=== PATIENT | female | born 1950 | race Hispanic/Latino ===

== ENCOUNTER 2018-10-18 11:16 | Observation (INO) | payer MEDICARE, OTHER ==
[2018-10-18] MEDS ORDERED: Lidocaine 129 MG in Sodium Chloride 0.9% 100 ML IV STA (13:03)
[2018-10-18] MEDS ORDERED: Sodium Chloride 0.9% 1,000 ML IV STA (13:03)
--- NOTE | 2018-10-18 13:10 | C.PDOC ---
History Of Present Illness 68 y/o female presents to the ED complaining of LUQ and left flank pain since yesterday. Patient has PMHx of chronic low back pain, for which she is prescribed opiates and receives periodic steroid injections. Initially patient states she attributed symptoms to her chronic pain as it was located in left flank and low back. Now pain has migrated to the front, prompting patient to come in. Pain worsens with position change or movement, and resolves with rest. No other associated complaints. Patient denies any dysuria, hematuria, fevers, chills, nausea, vomiting, or change in bowel movements. Time Seen by Provider: 10/18/18 12:05 Chief Complaint (Nursing): Abdominal Pain History Per: Patient History/Exam Limitations: no limitations Onset/Duration Of Symptoms: Days (x2) Current Symptoms Are (Timing): Still Present Location Of Pain/Discomfort: LUQ Radiation Of Pain To:: Back, Flank Quality Of Discomfort: "Pain" Exacerbating Factors: Movement, Upright Position Alleviating Factors: Rest Past Medical History Reviewed: Historical Data, Nursing Documentation, Vital Signs Vital Signs: Last Vital Signs Temp 99.4 F 10/18/18 11:23 Pulse 98 H 10/18/18 11:23 Resp 18 10/18/18 11:23 BP 183/97 H 10/18/18 11:23 Pulse Ox 95 10/18/18 11:23 - Medical History PMH: Anxiety, Arthritis (knees), Asthma, COPD, HTN, Chronic Pain (low back) Denies: Diabetes, Hepatitis, HIV, Seizures Family History: States: No Known Family Hx - Social History Hx Tobacco Use: No Hx Alcohol Use: No Hx Substance Use: No - Immunization History Hx Tetanus Toxoid Vaccination: No Hx Influenza Vaccination: Yes Hx Pneumococcal Vaccination: No Review Of Systems Except As Marked, All Systems Reviewed And Found Negative. Constitutional: Negative for: Fever, Chills Cardiovascular: Negative for: Chest Pain Respiratory: Negative for: Shortness of Breath Gastrointestinal: Positive for: Abdominal Pain (LUQ), Other (Left flank pain). Negative for: Nausea, Vomiting, Diarrhea, Constipation Genitourinary: Negative for: Dysuria, Frequency, Hematuria Musculoskeletal: Positive for: Back Pain (chronic low back pain) Skin: Negative for: Rash Neurological: Negative for: Weakness, Numbness, Incoordination Physical Exam - Physical Exam Appears: Non-toxic, In Acute Distress (mild distress) Skin: Warm, Dry, No Rash Head: Atraumatic, Normacephalic Eye(s): bilateral: Normal Inspection, PERRL, EOMI Oral Mucosa: Moist Neck: Normal ROM Chest: Symmetrical Cardiovascular: Rhythm Regular, No Murmur Respiratory: Normal Breath Sounds, No Rales, No Rhonchi, No Wheezing, Other (NARD) Gastrointestinal/Abdominal: Soft, No Tenderness (to any quadrant), No Distention, No Guarding, No Rebound Back: CVA Tenderness (minimal Left CVAT), No Vertebral Tenderness, Other (Reproducible pain with movement and sitting upright) Extremity: Bilateral: Atraumatic, Normal Color And Temperature, Normal ROM (moves all extremities) Pulses: Left Dorsalis Pedis: Normal, Right Dorsalis Pedis: Normal Neurological/Psych: Oriented x3, Normal Cranial Nerves, Normal Motor, Normal Sensation, Other (No focal deficits) ED Course And Treatment - Laboratory Results Result Diagrams: 10/18/18 13:19 10/18/18 13:19 O2 Sat by Pulse Oximetry: 95 (RA) Pulse Ox Interpretation: Normal - Other Rad CXR X-Ray: Read By Radiologist Interpretation: Accession No. : [id number]. Patient Name / ID : KARLA GARZA / [id number]. Exam Date : 10/18/2018 13:20:25 ( Approved ). Study Comment : Sex / Age : F / 68Y. Creator : Dolores Calloway RT,CT. Dictator : Rayray Lamb MD. Ladle Mechanic : Sales Support Consultant : Rayray Lamb MD. Approver2 : Report Date : 10/18/2018 13:29:38. My Comment : . Date of service: 10/18/2018. HISTORY: abd pain. COMPARISON: No prior. TECHNIQUE: Chest PA and lateral. FINDINGS: LUNGS: Linear scar atelectasis at left base. No infiltrate. PLEURA: No significant pleural effusion identified. No pneumothorax apparent. CARDIOVASCULAR: No aortic atherosclerotic calcification present. Normal cardiac size. No pulmonary vascular congestion. OSSEOUS STRUCTURES: No significant abnormalities. VISUALIZED UPPER ABDOMEN: Incidentally noted colonic interposition between superior right liver and right hemidiaphragm. OTHER FINDINGS: None. IMPRESSION: No active disease. - CT Scan/US CT Abdomen/Pelvis Other Rad Studies (CT/US): Read By Radiologist, Radiology Report Reviewed CT/US Interpretation: Accession No. : [id number]. Patient Name / ID : KARLA GARZA / [id number]. Exam Date : 10/18/2018 14:33:26 ( Approved ). Study Comment : Sex / Age : F / 68Y. Creator : Rayray Lamb MD. Dictator : Rayray Lamb MD. Ladle Mechanic : Sales Support Consultant : Rayray Lamb MD. Approver2 : Report Date : 10/18/2018 15:11:27. My Comment : . Date of service: 10/18/2018. PROCEDURE: CT Abdomen and Pelvis with contrast. HISTORY: L FLANK/LUQ PAIN. COMPARISON: Not available. TECHNIQUE: Contrast dose: 100 mL Omnipaque 350. Radiation dose: Total exam DLP = 1014.98 mGy-cm. This CT exam was performed using one or more of the following dose reduction techniques: Automated exposure control, adjustment of the mA and/or kV according to patient size, and/or use of iterative reconstruction technique. FINDINGS: LOWER THORAX: Unremarkable. LIVER: Unremarkable. No gross lesion or ductal dilatation. GALLBLADDER AND BILE DUCTS: Cholelithiasis. No mural thickening or pericholecystic fluid. PANCREAS: Unremarkable. No gross lesion or ductal dilatation. SPLEEN: Mild splenomegaly. The spleen measures 13.9 cm in greatest dimension. There is an 11 mm nonspecific rounded low-density mass in the spleen. ADRENALS: Unremarkable. No mass. KIDNEYS AND URETERS: Numerous bilateral rounded low-attenuation masses. Largest in the left kidney the rises from the lower pole and measures approximately 9.2 cm in diameter. This measures 16 Hounsfield units attenuation. In the right kidney, the largest is in the upper pole, measuring 4.7 cm in diameter and 9 Hounsfield units attenuation. Likely renal cysts. No calculus or hydronephrosis. VASCULATURE: Unremarkable. No aortic aneurysm. There is atherosclerotic calcification of the abdominal aorta. BOWEL: Sigmoid diverticulosis. No evidence of diverticulitis. No bowel obstruction. Mild mural thickening of the sigmoid colon likely due to muscular hypertrophy. Atypical location of the cecum, in the central anterior abdomen. A developmental variant. APPENDIX: No rmal appendix. PERITONEUM: Unremarkable. No free fluid. No free air. LYMPH NODES: Unremarkable. No enlarged lymph nodes. BLADDER: Poorly distended. REPRODUCTIVE: Low-attenuation seen centrally within the uterus a. This should be correlated with ultrasound examination preferably with transvaginal technique. Rule out leiomyoma. Rule out cervical stenosis. BONES: No acute fracture. Grade 1 anterolisthesis at L4-5. Multilevel degenerative disc disease. Lucent lesion in L5 vertebral body. Possible hemangioma. Nevertheless, recommend evaluation with radionuclide bone scan. OTHER FINDINGS: None. IMPRESSION: No evidence of urinary calculus or urinary tract obstruction. Numerous bilateral renal cysts. Cholelithiasis without evidence of cholecystitis. Mild splenomegaly. Possibly hemangioma in L5 vertebral body. Recommend evaluation with radionuclide bone scan. Questionable low attenuation centrally within uterus. Further evaluation with transvaginal pelvic ultrasound examination is advised. Progress - Re-Evaluation Re-evaluation Note: 10/18/18 15:54 SP TORADOL FEELS BETTER BUT PERSIST PAIN. ADVISED OF CT FINDINGS. STATES DOES NOT HAVE PMD. STILL DIFF MOVING, WALKING DUE TO PAIN D/W DR ANA LILIA CRESPO CYCLE CONSULTANT WILL ADMIT - Data Reviewed Data Reviewed: Lab, Diagnostic imaging, Old records Medical Decision Making Medical Decision Making: Impression: LUQ/Left flank pain, r/o renal colic Initial Plan: --CMP, CBC, lipase --UA --Chest x-ray --IVF hydration --IV Lidocaine 2% --30 mg IV Toradol --0.4 mg PO Flomax Labs reviewed. Ordered CT Abd/Pelvis with IV contrast only. Disposition Counseled Patient/Family Regarding: Studies Performed, Diagnosis - Disposition Disposition: HOSPITALIZED Disposition Time: 15:58 Condition: STABLE Forms: Fio (Romansh) - Clinical Impression Clinical Impression: Back pain, Bone lesion, Difficulty walking - Scribe Statement The provider has reviewed the documentation as recorded by the Miguel Feldman Provider Attestation: All medical record entries made by the Miguel were at my direction and personally dictated by me. I have reviewed the chart and agree that the record accurately reflects my personal performance of the history, physical exam, medical decision making, and the department course for this patient. I have also personally directed, reviewed, and agree with the discharge instructions and disposition.
[2018-10-18] MEDS ORDERED: Sodium Chloride 0.9% 1,000 ML ONE (13:16)
[2018-10-18 13:22] LABS: BASO % 0.1 % (0.0-2.0); EOS # 0.1 K/uL (0.0-0.7); EOS % 0.5 % (0.0-4.0); HEMOGLOBIN 14.6 g/dL (11.0-16.0); LYMPH # 0.9 K/uL (1.0-4.3); LYMPH % 7.6 % (20.0-40.0); MEAN CELL VOLUME 95.7 fL (81.0-99.0); MEAN CORPUSCULAR HGB CONC 33.4 g/dL (33.0-37.0); MEAN PLATELET VOLUME 9.8 fL (7.2-11.7); MONO # 1.2 K/uL (0.0-0.8); MONO % 9.6 % (0.0-10.0); NEUT # 10.2 K/uL (1.8-7.0); NEUT % 82.2 % (50.0-75.0); PLATELET COUNT 183 K/uL (130-400); RBC 4.55 Mil/uL (3.80-5.20); RED CELL DISTRIBUTION WIDTH 12.4 % (11.5-14.5); WHITE BLOOD COUNT 12.4 K/uL (4.8-10.8)
[2018-10-18 13:30] LABS: SQUAMOUS EPITHIAL 18 /hpf (0-5); URINE BACTERIA RARE (<OCC); URINE BILIRUBIN 1+ (NEGATIVE); URINE BLOOD NEGATIVE (NEGATIVE); URINE CLARITY Hazy (Clear); URINE COLOR Amber (YELLOW); URINE GLUCOSE (UA) NORMAL (Normal); URINE LEUKOCYTE ESTERASE NEG Leu/uL (Negative); URINE PROTEIN 3+ mg/dL (NEGATIVE)
[2018-10-18 13:38] LABS: AST/SGOT 59 U/L (14-36); BLOOD UREA NITROGEN 20 mg/dL (7-17); CALCIUM 9.6 mg/dl (8.6-10.4); GFR NON-AFRICAN AMERICAN 55; LIPASE 78 U/L (23-300)
[2018-10-18 13:39] LABS: ALB/GLOB RATIO 1.4 (1.0-2.1); ALBUMIN 4.9 g/dL (3.5-5.0); ALT/SGPT 24 U/L (9-52)
--- NOTE | 2018-10-18 13:48 | RAD ---
Date of service: 10/18/2018 HISTORY: abd pain COMPARISON: No prior TECHNIQUE: Chest PA and lateral FINDINGS: LUNGS: Linear scar atelectasis at left base. No infiltrate. PLEURA: No significant pleural effusion identified. No pneumothorax apparent. CARDIOVASCULAR: No aortic atherosclerotic calcification present. Normal cardiac size. No pulmonary vascular congestion. OSSEOUS STRUCTURES: No significant abnormalities. VISUALIZED UPPER ABDOMEN: Incidentally noted colonic interposition between superior right liver and right hemidiaphragm. OTHER FINDINGS: None. IMPRESSION: No active disease.
[2018-10-18 14:07] LABS: EOSINOPHIL 1 % (0-4); LYMPHOCYTE 6 % (20-40); MONOCYTE 4 % (0-10); NEUTROPHIL 89 % (50-75); PLATELET ESTIMATE NORMAL (NORMAL); TOTAL CELLS COUNTED 100
[2018-10-18] MEDS ORDERED: Iohexol 350mg/ml 100 ML ONE (14:13)
--- NOTE | 2018-10-18 15:14 | CT ---
Date of service: 10/18/2018 PROCEDURE: CT Abdomen and Pelvis with contrast HISTORY: L FLANK/LUQ PAIN COMPARISON: Not available TECHNIQUE: Contrast dose: 100 mL Omnipaque 350 Radiation dose: Total exam DLP = 1014.98 mGy-cm. This CT exam was performed using one or more of the following dose reduction techniques: Automated exposure control, adjustment of the mA and/or kV according to patient size, and/or use of iterative reconstruction technique. FINDINGS: LOWER THORAX: Unremarkable. LIVER: Unremarkable. No gross lesion or ductal dilatation. GALLBLADDER AND BILE DUCTS: Cholelithiasis. No mural thickening or pericholecystic fluid. PANCREAS: Unremarkable. No gross lesion or ductal dilatation. SPLEEN: Mild splenomegaly. The spleen measures 13.9 cm in greatest dimension. There is an 11 mm nonspecific rounded low-density mass in the spleen. ADRENALS: Unremarkable. No mass. KIDNEYS AND URETERS: Numerous bilateral rounded low-attenuation masses. Largest in the left kidney the rises from the lower pole and measures approximately 9.2 cm in diameter. This measures 16 Hounsfield units attenuation. In the right kidney, the largest is in the upper pole, measuring 4.7 cm in diameter and 9 Hounsfield units attenuation. Likely renal cysts. No calculus or hydronephrosis. VASCULATURE: Unremarkable. No aortic aneurysm. There is atherosclerotic calcification of the abdominal aorta. BOWEL: Sigmoid diverticulosis. No evidence of diverticulitis. No bowel obstruction. Mild mural thickening of the sigmoid colon likely due to muscular hypertrophy. Atypical location of the cecum, in the central anterior abdomen. A developmental variant APPENDIX: Normal appendix. PERITONEUM: Unremarkable. No free fluid. No free air. LYMPH NODES: Unremarkable. No enlarged lymph nodes. BLADDER: Poorly distended. REPRODUCTIVE: Low-attenuation seen centrally within the uterus a. This should be correlated with ultrasound examination preferably with transvaginal technique. Rule out leiomyoma. Rule out cervical stenosis. BONES: No acute fracture. Grade 1 anterolisthesis at L4-5. Multilevel degenerative disc disease. Lucent lesion in L5 vertebral body. Possible hemangioma. Nevertheless, recommend evaluation with radionuclide bone scan. OTHER FINDINGS: None. IMPRESSION: No evidence of urinary calculus or urinary tract obstruction. Numerous bilateral renal cysts. Cholelithiasis without evidence of cholecystitis. Mild splenomegaly. Possibly hemangioma in L5 vertebral body. Recommend evaluation with radionuclide bone scan. Questionable low attenuation centrally within uterus. Further evaluation with transvaginal pelvic ultrasound examination is advised.
[2018-10-18] MEDS: metroNIDAZOLE IV 500 mg/100 ml 250 MG in Premixed IV 1 EA IVPB SCH (18:12)
[2018-10-18 18:46] VITALS: RESP 20
[2018-10-18] MEDS: oxyCODONE 30 mg Immediate Release Tab PO PRN (19:27)
[2018-10-19] MEDS: metroNIDAZOLE IV 500 mg/100 ml 250 MG in Premixed IV 1 EA IVPB SCH ×3 (01:18→17:43)
[2018-10-19] MEDS: oxyCODONE 30 mg Immediate Release Tab PO PRN ×3 (06:37→21:08)
[2018-10-19] MEDS: Enoxaparin 40 mg Syringe SC SCH (10:07)
[2018-10-19] MEDS: Benzocaine/Menthol (Cepacol) Lozenge MT PRN (17:43)
--- NOTE | 2018-10-19 21:10 | CP.PCM.HP ---
Present on Admission - Present on Admission Any Indicators Present on Admission: No Past Patient History - Infectious Disease Hx of Infectious Diseases: None - Past Social History Smoking Status: Former Smoker - CARDIAC Hx Hypertension: Yes - PULMONARY Hx Asthma: Yes Hx Chronic Obstructive Pulmonary Disease (COPD): Yes - NEUROLOGICAL Hx Seizures: No - HEMATOLOGICAL/ONCOLOGICAL Hx Human Immunodeficiency Virus (HIV): No - MUSCULOSKELETAL/RHEUMATOLOGICAL Hx Arthritis: Yes (knees) - PSYCHIATRIC Hx Anxiety: Yes Hx Substance Use: No - SURGICAL HISTORY Other/Comment: rt foot surgery Meds Allergies/Adverse Reactions: Allergies Allergy/AdvReac Type Severity Reaction Status Date / Time No Known Allergies Allergy Verified 05/29/15 02:03 Results - Vital Signs Recent Vital Signs: Last Vital Signs Temp 98 F 10/19/18 16:00 Pulse 87 10/19/18 16:00 Resp 20 10/19/18 16:00 BP 133/84 10/19/18 16:00 Pulse Ox 94 L 10/19/18 16:00 - Labs Result Diagrams: 10/18/18 13:19 10/18/18 13:19
[2018-10-20] MEDS: metroNIDAZOLE IV 500 mg/100 ml 250 MG in Premixed IV 1 EA IVPB SCH ×2 (00:53→09:46)
--- NOTE | 2018-10-20 03:14 | HP ---
CHIEF COMPLAINT: Left upper quadrant and left leg pain x1 day. HISTORY OF PRESENT ILLNESS: This is a 68-year-old white female who has history of right ankle surgery with prior multiple surgeries on the right ankle. She also has chronic low back pain, and the patient is seeing Dr. Shaw in [place] for her pain management. She is compliant with diet, medication, and followup, and the patient has not been feeling well for almost 24 hours. She is having left upper quadrant abdominal pain. It is dull, nonradiating, which is 2/10 in its intensity and she had nausea on the day of admission, but it resolved without any vomiting, without any medication. She has generalized weakness. She denies any dysuria, hematuria, or pyuria. She denies any sneezing, itchy eyes, or itchy nose. The patient denies any cough, sore throat, runny nose. There is no history of any recent trauma, but there is history of trauma in the past. She denies any fever or chills. No nausea or vomiting. No change in bowel movements. The patient denies any knee pain. The patient mostly has abdominal pain. ALLERGIES: NO KNOWN ALLERGIES. CURRENT MEDICATIONS: At home, she is taking oxycodone, morphine sulfate, Xanax, and vitamin D. FAMILY HISTORY: Noncontributory. PHYSICAL EXAMINATION: GENERAL: An elderly female in minimal distress. VITAL SIGNS: Blood pressure 145/86, pulse 90, respiratory rate 20, temperature 98.9. SKIN: Senile turgor. No bruises. No purpura. No petechiae. No ecchymosis. HEENT: Head, atraumatic and normocephalic. Negative pallor. Negative jaundice. Extraocular movements are intact. NECK: Supple. No JVD. No lymph nodes. CHEST WALL: Bilateral symmetrical expansion. LUNGS: Clear. No rales. No rhonchi. CVS: PMI not localized. S1 and S2. Regular. No heave. No thrill. ABDOMEN: Soft and nontender. Bowel sounds are positive. RECTAL: No masses. No bleeding. EXTREMITIES: No clubbing, cyanosis, or edema. RESIDENTIAL PROGRAM COORDINATOR: Awake, alert, and oriented x3. Cranial nerves II through XII are normal. Power 5/5 x4. Plantars are downgoing. ASSESSMENT: 1. Abdominal pain, most likely it is gastritis. 2. On the CAT scan of the abdomen, there is a possibility of lytic lesion on the bone. We will get the bone scan. 3. Low back pain with right ankle pain. PLAN: Medical management. Continue current medications. Detailed orders are written. Seen and examined. Aric Noriega MD
[2018-10-20] MEDS: oxyCODONE 30 mg Immediate Release Tab PO PRN ×2 (06:37→14:47)
[2018-10-20 07:22] LABS: EOS # 0.3 K/uL (0.0-0.7); MEAN CELL VOLUME 97.4 fL (81.0-99.0); MEAN PLATELET VOLUME 9.7 fL (7.2-11.7); WHITE BLOOD COUNT 6.8 K/uL (4.8-10.8)
[2018-10-20 07:27] LABS: BASO % 0.5 % (0.0-2.0); EOS % 4.2 % (0.0-4.0); LYMPH # 1.4 K/uL (1.0-4.3); LYMPH % 21.1 % (20.0-40.0); MEAN CORPUSCULAR HEMOGLOBIN 33.1 pg (27.0-31.0); MONO % 14.4 % (0.0-10.0); NEUT # 4.1 K/uL (1.8-7.0); NEUT % 59.8 % (50.0-75.0); NRBC % 0.2 % (0.0-2.0); RBC 3.59 Mil/uL (3.80-5.20); RED CELL DISTRIBUTION WIDTH 12.5 % (11.5-14.5)
[2018-10-20 07:31] LABS: HEMOGLOBIN 11.9 g/dL (11.0-16.0)
[2018-10-20 07:49] LABS: ALB/GLOB RATIO 1.3 (1.0-2.1); ALBUMIN 3.4 g/dL (3.5-5.0); ALT/SGPT 24 U/L (9-52); AST/SGOT 26 U/L (14-36); BLOOD UREA NITROGEN 22 mg/dL (7-17); CALCIUM 8.6 mg/dl (8.6-10.4); GFR NON-AFRICAN AMERICAN > 60
[2018-10-20 08:01] VITALS: BP 127/80; PULSE 78; TEMP 98; O2SAT 93
[2018-10-20] MEDS: Enoxaparin 40 mg Syringe SC SCH (09:46)
[2018-10-20] MEDS: Benzocaine/Menthol (Cepacol) Lozenge MT PRN (10:48)
--- NOTE | 2018-10-20 12:29 | CP.PCM.DIS ---
Provider - Provider Date of Admission: 10/18/18 16:00 Attending physician: Aric Noriega MD Time Spent in preparation of Discharge (in minutes): 30 Hospital Course - Lab Results Lab Results: Most Recent Lab Values WBC 6.8 K/uL (4.8-10.8) 10/20/18 07:04 RBC 3.59 Mil/uL (3.80-5.20) L 10/20/18 07:04 Hgb 11.9 g/dL (11.0-16.0) D 10/20/18 07:04 Hct 35.0 % (34.0-47.0) 10/20/18 07:04 MCV 97.4 fL (81.0-99.0) 10/20/18 07:04 MCH 33.1 pg (27.0-31.0) H 10/20/18 07:04 MCHC 34.0 g/dL (33.0-37.0) 10/20/18 07:04 RDW 12.5 % (11.5-14.5) 10/20/18 07:04 Plt Count 112 K/uL (130-400) L D 10/20/18 07:04 MPV 9.7 fL (7.2-11.7) 10/20/18 07:04 Neut % (Auto) 59.8 % (50.0-75.0) 10/20/18 07:04 Lymph % (Auto) 21.1 % (20.0-40.0) 10/20/18 07:04 [place] % (Auto) 14.4 % (0.0-10.0) H 10/20/18 07:04 Eos % (Auto) 4.2 % (0.0-4.0) H 10/20/18 07:04 Baso % (Auto) 0.5 % (0.0-2.0) 10/20/18 07:04 Neut # (Auto) 4.1 K/uL (1.8-7.0) 10/20/18 07:04 Lymph # (Auto) 1.4 K/uL (1.0-4.3) 10/20/18 07:04 [place] # (Auto) 1.0 K/uL (0.0-0.8) H 10/20/18 07:04 Eos # (Auto) 0.3 K/uL (0.0-0.7) 10/20/18 07:04 Baso # (Auto) 0.0 K/uL (0.0-0.2) 10/20/18 07:04 Neutrophils % (Manual) 89 % (50-75) H 10/18/18 13:19 Lymphocytes % (Manual) 6 % (20-40) L 10/18/18 13:19 Monocytes % (Manual) 4 % (0-10) 10/18/18 13:19 Eosinophils % (Manual) 1 % (0-4) 10/18/18 13:19 Differential Comment 10/20/18 07:04 Platelet Estimate Normal (NORMAL) 10/18/18 13:19 RBC Morphology Normal 10/18/18 13:19 Sodium 136 mmol/L (132-148) 10/20/18 07:04 Potassium 3.8 mmol/L (3.6-5.2) 10/20/18 07:04 Chloride 104 mmol/L (98-107) 10/20/18 07:04 Carbon Dioxide 25 mmol/L (22-30) 10/20/18 07:04 Anion Gap 10 (10-20) 10/20/18 07:04 BUN 22 mg/dL (7-17) H 10/20/18 07:04 Creatinine 0.9 mg/dL (0.7-1.2) 10/20/18 07:04 Est GFR ( Amer) > 60 10/20/18 07:04 Est GFR (Non-Af Amer) > 60 10/20/18 07:04 Random Glucose 90 mg/dL (65-105) D 10/20/18 07:04 Calcium 8.6 mg/dl (8.6-10.4) 10/20/18 07:04 Total Bilirubin 0.9 mg/dL (0.2-1.3) 10/20/18 07:04 AST 26 U/L (14-36) 10/20/18 07:04 ALT 24 U/L (9-52) 10/20/18 07:04 Alkaline Phosphatase 68 U/L (38-126) 10/20/18 07:04 Total Protein 6.0 g/dL (6.3-8.3) L 10/20/18 07:04 Albumin 3.4 g/dL (3.5-5.0) L D 10/20/18 07:04 Globulin 2.6 gm/dL (2.2-3.9) 10/20/18 07:04 Albumin/Globulin Ratio 1.3 (1.0-2.1) 10/20/18 07:04 Lipase 78 U/L (23-300) 10/18/18 13:19 Urine Color Kristina (YELLOW) 10/18/18 13:19 Urine Clarity Hazy (Clear) 10/18/18 13:19 Urine pH 5.0 (5.0-8.0) 10/18/18 13:19 Ur Specific [place] 1.029 (1.003-1.030) 10/18/18 13:19 Urine Protein 3+ mg/dL (NEGATIVE) H 10/18/18 13:19 Urine Glucose (UA) Normal mg/dL (Normal) 10/18/18 13:19 Urine Ketones Trace mg/dL (NEGATIVE) 10/18/18 13:19 Urine Blood Negative (NEGATIVE) 10/18/18 13:19 Urine Nitrate Negative (NEGATIVE) 10/18/18 13:19 Urine Bilirubin 1+ (NEGATIVE) H 10/18/18 13:19 Urine Urobilinogen 2.0 mg/dL (0.2-1.0) H 10/18/18 13:19 Ur Leukocyte Esterase Neg [place]/uL (Negative) 10/18/18 13:19 Urine WBC (Auto) 8 /hpf (0-5) H 10/18/18 13:19 Urine RBC (Auto) 8 /hpf (0-3) H 10/18/18 13:19 Ur Squamous Epith Cells 18 /hpf (0-5) H 10/18/18 13:19 Urine Bacteria Rare (<OCC) 10/18/18 13:19 Hyaline Casts 11-20 /lpf (0-2) H 10/18/18 13:19 Discharge Plan - Follow Up Plan Condition: STABLE Disposition: HOME/ ROUTINE
--- NOTE | 2018-10-20 14:12 | NM ---
Date of service: 10/20/2018 PROCEDURE: Whole Body Bone Scan HISTORY: Lytic lesions, back pain. COMPARISON: October 19, 2018 CT abdomen and pelvis 02/01/2017 MRI lumbar spine TECHNIQUE: Following administration of 24.5 miCu of Tc MDP multiplanar whole body images were obtained. FINDINGS: Evidence for bony metastatic disease: None. Degenerative uptake: Increased uptake lower thoracic spine, T11 vertebral body. No corollary abnormalities identified on recent CT scan of these osseous structures. No abnormalities on the prior MRI scan. Lumbar degenerative changes. Degenerative changes in both knees. Physiologic uptake: Normal physiologic activity in the kidneys. Other findings: None. IMPRESSION: No evidence of bony metastatic disease. Increased uptake T11 vertebral body. However comparison with recent CT scan fails to identify a lytic or blastic abnormality in this structure or any others visualized on the recent CT scan of the abdomen and pelvis including thoracic spine, lumbar spine, pelvic and proximal femoral osseous structures.
--- NOTE | 2018-10-20 15:40 | CP.PCM.PN ---
Subjective - Date & Time of Evaluation Date of Evaluation: 10/20/18 Time of Evaluation: 15:40 Objective - Vital Signs/Intake and Output Vital Signs (last 24 hours): Temp Pulse Resp BP Pulse Ox 98 F 78 20 127/80 93 L 10/20/18 08:00 10/20/18 08:00 10/20/18 08:00 10/20/18 08:00 10/20/18 12:00 Intake and Output: 10/20/18 10/20/18 06:59 18:59 Intake Total 500 Balance 500 - Medications Medications: Current Medications Alprazolam (Xanax) 2 mg PO TID PRN PRN Reason: Anxiety Last Admin: 10/20/18 09:50 Dose: 2 mg Benzocaine/Menthol (Cepacol Sore Throat) 1 regla MT Q4H PRN PRN Reason: Sore Throat Last Admin: 10/20/18 10:48 Dose: 1 regla Enoxaparin Sodium (Lovenox) 40 mg SC DAILY RICHARD Last Admin: 10/20/18 09:46 Dose: 40 mg Metronidazole 250 mg/ (Miscellaneous) 50 mls @ 100 mls/hr IVPB Q8H RICHARD; Protocol Last Admin: 10/20/18 09:46 Dose: 100 mls/hr Ceftriaxone Sodium 1 gm/ (Sodium Chloride) 100 mls @ 100 mls/hr IVPB DAILY RICHARD; Protocol Last Admin: 10/20/18 10:45 Dose: 100 mls/hr Oxycodone HCl (Oxycodone Immediate Release Tab) 30 mg PO TID PRN PRN Reason: Pain, moderate (4-7) Last Admin: 10/20/18 14:47 Dose: 30 mg Pneumococcal Polyvalent Vaccine (Pneumovax 23 Vaccine) 0.5 ml IM .ONCE ONE Stop: 10/21/18 10:01 - Labs Labs: 10/20/18 07:04 10/20/18 07:04 Assessment and Plan - Assessment and Plan (Free Text) Assessment: FOLLOW UP WITH DR SUNG IN HIS OFFICE ------CALL FOR APPOINTMENT CONTINUE HOME MEDICATION ACTIVITY TOLERATED CALL DR SUNG OR GO TO THE EMERGENCY ROOM IF SYMPTOM RETURN OR WORSENING
[2018-10-20] MEDS ORDERED: Pneumococcal 23-Valent Vaccine IM ONE (15:44)
--- NOTE | 2018-10-20 18:10 | PN ---
DATE: 10/20/2018 SUBJECTIVE: The patient is waiting for bone scan. She is feeling better. She is walking around. No nausea, vomiting. No fever, no chills. PHYSICAL EXAMINATION: VITAL SIGNS: Blood pressure 125/80, pulse 73, respiratory rate 20, temperature 98. LUNGS: Clear. ABDOMEN: Soft. Bowel sounds present. CENTRAL NERVOUS SYSTEM: Awake, alert, and oriented. ASSESSMENT: 1. Rule out lytic bone lesion. 2. Gastritis. 3. Chronic pain syndrome. PLAN: Continue current medications. Monitor patient. Aric Noriega MD
[2018-10-21] MEDS ORDERED: Pneumococcal 23-Valent Vaccine IM ONE (10:00)
[2018-10-22] MEDS ORDERED: Pneumococcal 23-Valent Vaccine IM ONE (10:00)
== END 2018-10-20 16:20 | disposition home or self-care (01) ==
LOC: C.ER 11:16 → C.9E 16:00 → C.5S 18:17
PROVIDERS: ADMIT Internal Medicine; ATTEND Internal Medicine
DX: R10.12 Left upper quadrant pain (principal); R93.7 Abnormal findings on diagnostic imaging of other parts of musculoskeletal system; G89.29 Other chronic pain; M54.5 Low back pain; M25.571 Pain in right ankle and joints of right foot; I10 Essential (primary) hypertension; J44.9 Chronic obstructive pulmonary disease, unspecified; F41.9 Anxiety disorder, unspecified; Z87.891 Personal history of nicotine dependence; Z98.890 Other specified postprocedural states; Z79.899 Other long term (current) drug therapy
CPT/HCPCS: 36415; 71046; 74177; 78306; 80053; 81001; 83690; 85025; 90732; 96360; 96365; 96374; 99285; A9503; G0009; G0378; J0696; J1650; J1885; J2001; J7030; Q9967

== ENCOUNTER 2019-01-26 22:00 | Emergency (ER) | payer MEDICARE, OTHER ==
[2019-01-26 23:11] LABS: BASO # 0.1 K/uL (0.0-0.2); BASO % 0.8 % (0.0-2.0); EOS # 0.3 K/uL (0.0-0.7); EOS % 4.2 % (0.0-4.0); HEMOGLOBIN 12.9 g/dL (11.0-16.0); LYMPH # 2.3 K/uL (1.0-4.3); LYMPH % 29.9 % (20.0-40.0); MEAN CELL VOLUME 94.8 fL (81.0-99.0); MEAN CORPUSCULAR HEMOGLOBIN 32.3 pg (27.0-31.0); MEAN CORPUSCULAR HGB CONC 34.1 g/dL (33.0-37.0); MEAN PLATELET VOLUME 9.8 fL (7.2-11.7); MONO # 0.8 K/uL (0.0-0.8); MONO % 10.6 % (0.0-10.0); NEUT # 4.2 K/uL (1.8-7.0); NEUT % 54.5 % (50.0-75.0); RED CELL DISTRIBUTION WIDTH 13.1 % (11.5-14.5); WHITE BLOOD COUNT 7.6 K/uL (4.8-10.8)
--- NOTE | 2019-01-26 23:18 | C.PDOC ---
History Of Present Illness 68 year old female with PMHx of chronic pain and xanax is brought to the ED by EMS for evaluation. As per EMS patient was picked up from a unknown person porch confused as to how she got there. Patient is currently taking opioids for pain management and xanax for anxiety. At bedside patient is somnolent but easily arousable. Of note patient is using narcotic for chronic pain. Patient denies any other complaints. <Maicol Newman - Last Filed: 01/26/19 23:18> History Per: Patient, EMS History/Exam Limitations: Intoxication Onset/Duration Of Symptoms: Hrs Onset Of Symptoms: Cannot Confirm Onset Current Symptoms Are (Timing): Still Present Usual Baseline: Alert Oriented Exacerbating Factor(s): Drug Use Recent travel outside of the [place]: No Additional History Per: Patient <Maicol Newman - Last Filed: 01/26/19 23:18> <Gi Davis - Last Filed: 01/27/19 01:18> <Yuridia Jefferson - Last Filed: 01/27/19 06:13> Time Seen by Provider: 01/26/19 22:03 Chief Complaint (Nursing): Altered Mental Status Past Medical History Reviewed: Historical Data, Nursing Documentation, Vital Signs Vital Signs: Last Vital Signs Temp 97.9 F 01/26/19 22:14 Pulse 86 01/26/19 22:14 Resp 14 01/26/19 22:14 BP 111/70 01/26/19 22:14 Pulse Ox 95 01/26/19 22:14 - Medical History PMH: Anxiety, Arthritis (knees), Asthma, COPD, HTN, Chronic Pain (low back) Denies: Diabetes, Hepatitis, HIV, Seizures Surgical History: No Surg Hx Family History: States: Unknown Family Hx - Social History Hx Tobacco Use: No Hx Alcohol Use: No Hx Substance Use: No - Immunization History Hx Tetanus Toxoid Vaccination: No Hx Influenza Vaccination: Yes Hx Pneumococcal Vaccination: No <Maicol Newman - Last Filed: 01/26/19 23:18> Vital Signs: Last Vital Signs Temp 97.9 F 01/26/19 22:14 Pulse 67 01/27/19 00:21 Resp 20 01/27/19 00:21 BP 97/55 L 01/27/19 00:21 Pulse Ox 98 01/27/19 00:21 <Gi Davis - Last Filed: 01/27/19 01:18> Vital Signs: Last Vital Signs Temp 98.2 F 01/27/19 04:12 Pulse 70 01/27/19 04:12 Resp 18 01/27/19 04:12 BP 110/97 H 01/27/19 04:12 Pulse Ox 99 01/27/19 04:12 <LiYuridia - Last Filed: 01/27/19 06:13> Review Of Systems Constitutional: Negative for: Fever, Chills Cardiovascular: Negative for: Chest Pain Respiratory: Negative for: Shortness of Breath Gastrointestinal: Negative for: Nausea, Vomiting, Abdominal Pain Skin: Negative for: Rash Psych: Negative for: Depression, Suicidal ideation <Maicol Newman - Last Filed: 01/26/19 23:18> Physical Exam - Physical Exam Appears: Non-toxic, Other (somnolent but arousable ) Skin: Normal Color, Warm, Dry Head: Atraumatic, Normacephalic Eye(s): bilateral: Normal Inspection Neck: Normal ROM, Supple Chest: Symmetrical Cardiovascular: Rhythm Regular Respiratory: No Rales, Rhonchi (scattered), Wheezing (scattered) Extremity: Normal ROM, No Tenderness, No Swelling Neurological/Psych: Oriented x3, Other (somnolent but arousable ) Gait: Steady <Maicol Newman - Last Filed: 01/26/19 23:18> ED Course And Treatment ECG: Interpreted By Me, Viewed By Me ECG Rhythm: Sinus Rhythm Interpretation Of ECG: No ST/T wave changes, PVC Rate From EC (BPM) O2 Sat by Pulse Oximetry: 95 (ON RA) Pulse Ox Interpretation: Normal - Radiology CXR: Interpreted by Me, Viewed By Me CXR Interpretation: Yes: No Acute Disease. No: Infiltrates, Fracture <Maicol Newman - Last Filed: 01/26/19 23:18> - Laboratory Results Result Diagrams: 01/26/19 23:09 01/26/19 23:09 Lab Results: Total Bilirubin 0.9 mg/dL (0.2-1.3) 01/26/19 23:09 AST 38 U/L (14-36) H D 01/26/19 23:09 ALT 22 U/L (9-52) 01/26/19 23:09 Alkaline Phosphatase 62 U/L (38-126) 01/26/19 23:09 Total Protein 7.3 g/dL (6.3-8.3) 01/26/19 23:09 Albumin 4.2 g/dL (3.5-5.0) 01/26/19 23:09 Globulin 3.1 gm/dL (2.2-3.9) 01/26/19 23:09 Albumin/Globulin Ratio 1.4 (1.0-2.1) 01/26/19 23:09 Urine Color Kristina (YELLOW) 01/26/19 23:43 Urine Clarity Hazy (Clear) 01/26/19 23:43 Urine pH 5.0 (5.0-8.0) 01/26/19 23:43 Ur Specific [place] 1.025 (1.003-1.030) 01/26/19 23:43 Urine Protein 2+ mg/dL (NEGATIVE) H 01/26/19 23:43 Urine Glucose (UA) Normal mg/dL (Normal) 01/26/19 23:43 Urine Ketones Trace mg/dL (NEGATIVE) 01/26/19 23:43 Urine Blood Negative (NEGATIVE) 01/26/19 23:43 Urine Nitrate Negative (NEGATIVE) 01/26/19 23:43 Urine Bilirubin Negative (NEGATIVE) 01/26/19 23:43 Urine Urobilinogen 4.0 mg/dL (0.2-1.0) H 01/26/19 23:43 Ur Leukocyte Esterase Trace Krystal/uL (Negative) 01/26/19 23:43 Urine WBC (Auto) 4 /hpf (0-5) 01/26/19 23:43 Urine RBC (Auto) 2 /hpf (0-3) 01/26/19 23:43 Ur Squamous Epith Cells 3 /hpf (0-5) 01/26/19 23:43 Amorphous Sediment Occ /ul (<OCC) H 01/26/19 23:43 Urine Bacteria Few (<OCC) H 01/26/19 23:43 Hyaline Casts 6-10 /lpf (0-2) H 01/26/19 23:43 Urine HCG, Qual Negative (NEGATIVE) 01/26/19 23:43 Urine HCG, Qual Negative (NEGATIVE) 01/26/19 23:43 Progress Note: 1:00am- Patient has been cleared for discharge from psychiatric standpoint. She currently appears to be under influence of drugs, is pending sobriety. <Gi Davis - Last Filed: 01/27/19 01:18> - Laboratory Results Result Diagrams: 01/26/19 23:09 01/26/19 23:09 Lab Results: Total Bilirubin 0.9 mg/dL (0.2-1.3) 01/26/19 23:09 AST 38 U/L (14-36) H D 01/26/19 23:09 ALT 22 U/L (9-52) 01/26/19 23:09 Alkaline Phosphatase 62 U/L (38-126) 01/26/19 23:09 Total Protein 7.3 g/dL (6.3-8.3) 01/26/19 23:09 Albumin 4.2 g/dL (3.5-5.0) 01/26/19 23:09 Globulin 3.1 gm/dL (2.2-3.9) 01/26/19 23:09 Albumin/Globulin Ratio 1.4 (1.0-2.1) 01/26/19 23:09 Urine Color Kristina (YELLOW) 01/26/19 23:43 Urine Clarity Hazy (Clear) 01/26/19 23:43 Urine pH 5.0 (5.0-8.0) 01/26/19 23:43 Ur Specific [place] 1.025 (1.003-1.030) 01/26/19 23:43 Urine Protein 2+ mg/dL (NEGATIVE) H 01/26/19 23:43 Urine Glucose (UA) Normal mg/dL (Normal) 01/26/19 23:43 Urine Ketones Trace mg/dL (NEGATIVE) 01/26/19 23:43 Urine Blood Negative (NEGATIVE) 01/26/19 23:43 Urine Nitrate Negative (NEGATIVE) 01/26/19:43 Urine Bilirubin Negative (NEGATIVE) 01/26/19 23:43 Urine Urobilinogen 4.0 mg/dL (0.2-1.0) H 01/26/19 23:43 Ur Leukocyte Esterase Trace Krystal/uL (Negative) 01/26/19 23:43 Urine WBC (Auto) 4 /hpf (0-5) 01/26/19 23:43 Urine RBC (Auto) 2 /hpf (0-3) 01/26/19 23:43 Ur Squamous Epith Cells 3 /hpf (0-5) 01/26/19 23:43 Amorphous Sediment Occ /ul (<OCC) H 01/26/19 23:43 Urine Bacteria Few (<OCC) H 01/26/19 23:43 Hyaline Casts 6-10 /lpf (0-2) H 01/26/19 23:43 Urine HCG, Qual Negative (NEGATIVE) 01/26/19 23:43 Urine HCG, Qual Negative (NEGATIVE) 01/26/19 23:43 <Yuridia Jefferson - Last Filed: 01/27/19 06:13> Progress - Re-Evaluation Re-evaluation Note: 01/27/19 04:00 pt awake, agitated UN COOP W RN INSTRUCTIONS. CLIMBING OUT OF BED POSING DANGER TO SELF. REMAINS UNSTEADY 01/27/19 06:10 CALM COOPERATIVE. STEADY GAIT PER RN, SON NOTIFIED. UNABLE TO COME TO ER, STATES WILL CALL [facility] TO MRI TECH PT AND MEET PT AT HER HOUSE. - Data Reviewed Data Reviewed: Lab, Old records <Yuridia Jefferson - Last Filed: 01/27/19 06:13> Medical Decision Making Medical Decision Making: PLan: * EKG * Labs * CXR <Maicol Newman - Last Filed: 01/26/19 23:18> Disposition <Maicol Newman - Last Filed: 01/26/19 23:18> - Disposition Disposition Time: 01:00 <Gi Davis - Last Filed: 01/27/19 01:18> Counseled Patient/Family Regarding: Studies Performed, Diagnosis - Disposition Disposition Time: 07:00 <Yuridia Jefferson - Last Filed: 01/27/19 06:13> - Disposition Referrals: YOUR,PMD [Other] Disposition: HOME/ ROUTINE Condition: IMPROVED Instructions: Narcotic Overdose (DC) Forms: [facility] (Lebanese) - Clinical Impression Clinical Impression: Acute narcotic intoxication - Scribe Statement The provider has reviewed the documentation as recorded by the Scribe Ulysses Stephens All medical record entries made by the Scribe were at my direction and personally dictated by me. I have reviewed the chart and agree that the record accurately reflects my personal performance of the history, physical exam, medical decision making, and the department course for this patient. I have also personally directed, reviewed, and agree with the discharge instructions and disposition. <Maicol Newman - Last Filed: 01/26/19 23:18> Physician Patient Turnover Patient Signed Over To: Yuridia Jefferson Handoff Comments: pending sobriety <Gi Davis - Last Filed: 01/27/19 01:18>
[2019-01-26 23:28] LABS: BLOOD UREA NITROGEN 38 mg/dL (7-17); CALCIUM 9.5 mg/dl (8.6-10.4); GFR NON-AFRICAN AMERICAN 34
[2019-01-26 23:44] LABS: ALB/GLOB RATIO 1.4 (1.0-2.1); ALBUMIN 4.2 g/dL (3.5-5.0); ALT/SGPT 22 U/L (9-52); AST/SGOT 38 U/L (14-36)
[2019-01-26 23:53] LABS: HCG,QUALITATIVE URINE NEGATIVE (NEGATIVE)
[2019-01-27 00:01] LABS: SQUAMOUS EPITHIAL 3 /hpf (0-5); URINE AMORPHOUS SEDIMENT OCC /ul (<OCC); URINE BACTERIA FEW (<OCC); URINE BILIRUBIN NEGATIVE (NEGATIVE); URINE BLOOD NEGATIVE (NEGATIVE); URINE CLARITY Hazy (Clear); URINE COLOR Amber (YELLOW); URINE GLUCOSE (UA) NORMAL (Normal); URINE LEUKOCYTE ESTERASE TRACE Leu/uL (Negative); URINE PROTEIN 2+ mg/dL (NEGATIVE)
[2019-01-27 00:04] LABS: BARBITURATES, UR NEGATIVE (NEGATIVE); PHENCYCLIDINE, UR NEGATIVE (NEGATIVE)
[2019-01-27 00:05] LABS: BENZODIAZEPINES, UR POSITIVE (NEGATIVE); OPIATES, UR POSITIVE (NEGATIVE)
[2019-01-27 02:18] VITALS: RESP 18
[2019-01-27 04:12] VITALS: TEMP 98.2; O2SAT 99
[2019-01-27 06:27] VITALS: BP 112/79; PULSE 62
--- NOTE | 2019-01-27 14:58 | RAD ---
Date of service: 01/26/2019 HISTORY: Detox/Psy COMPARISON: Comparison chest 10/18/2018 TECHNIQUE: 1 view obtained. FINDINGS: LUNGS: Poor inspiration with low lung volumes, crowded bronchovascular markings and mild bibasilar atelectasis. PLEURA: No significant pleural effusion identified, no pneumothorax apparent. CARDIOVASCULAR: No aortic atherosclerotic calcification present. Normal cardiac size. No pulmonary vascular congestion. OSSEOUS STRUCTURES: No significant abnormalities. VISUALIZED UPPER ABDOMEN: Normal. OTHER FINDINGS: None. IMPRESSION: Poor inspiration with low lung volumes, crowded bronchovascular markings and mild bibasilar atelectasis.
--- NOTE | 2019-01-29 13:19 | CARD ---
APPROVED REPORT Date of service: 01/26/2019 EKG Measurement Heart [id number] <Conclusion> Sinus rhythm with occasional premature ventricular complexes Otherwise normal ECG
== END 2019-01-27 06:26 | disposition home or self-care (01) ==
LOC: C.ER 22:00
DX: F11.129 Opioid abuse with intoxication, unspecified (principal)
CPT/HCPCS: 71045; 80053; 81001; 82948; 83735; 84100; 84703; 85025; 87086; 93005; 96374; 99285; G0480; J2060